=== PATIENT | female | born 1975 | race Caucasian/White ===

== ENCOUNTER 2017-08-13 15:02 | Emergency (ER) | payer SELFPAY ==
[~2017-08-13] VITALS: Ht 165.1 cm; Wt 100.0 kg
[~2017-08-13 15:02] MED LIST: CYCL-120 PO; NAPR-56 PO
[2017-08-13 15:10] VITALS: BP 141/96
[2017-08-13] MEDS ORDERED: IBUP-1986 PO (15:23)
[2017-08-13] MEDS ORDERED: METH4TAB3 PO (15:23)
== END 2017-08-13 15:48 | disposition home or self-care (01) ==
LOC: ER 15:02
DX: M72.2 Plantar fascial fibromatosis (principal); F17.200 Nicotine dependence, unspecified, uncomplicated; Z79.899 Other long term (current) drug therapy
CPT/HCPCS: 99283

== ENCOUNTER 2017-11-22 13:34 | Emergency (ER) | payer MEDICAID, OTHER ==
[~2017-11-22] VITALS: Ht 167.6 cm; Wt 97.0 kg
[~2017-11-22 13:34] MED LIST changes: +IBUP-1986 PO; +METH4TAB3 PO
[2017-11-22 13:40] VITALS: BP 132/84
[2017-11-22] MEDS ORDERED: amox tr/potassium clavulanate 875/125mg TAB PO ONE (14:00)
[2017-11-22] MEDS ORDERED: HYDR-3965 PO (14:00)
[2017-11-22] MEDS ORDERED: acetaminophen 325mg tablet PO ONE (14:00)
[2017-11-22] MEDS ORDERED: AMOX-419 PO (14:00)
== END 2017-11-22 14:06 | disposition home or self-care (01) ==
LOC: ER 13:34
DX: K08.89 Other specified disorders of teeth and supporting structures (principal); Z90.89 Acquired absence of other organs; Z79.899 Other long term (current) drug therapy
CPT/HCPCS: 99283

== ENCOUNTER 2018-04-11 19:13 | Emergency (ER) | payer MEDICAID, OTHER ==
[~2018-04-11] VITALS: Ht 167.6 cm; Wt 89.5 kg
[2018-04-11 19:25] VITALS: BP 139/87
[2018-04-11] MEDS ORDERED: IBUP-1985 PO (22:04)
[2018-04-11] MEDS ORDERED: METH-360 PO (22:04)
[2018-04-11] MEDS ORDERED: ketorolac tromethamine 15mg/ml inj. IM ONE (22:05)
[2018-04-11] MEDS ORDERED: orphenadrine citrate 60mg/2ml inj. IM ONE (22:05)
== END 2018-04-11 22:34 | disposition home or self-care (01) ==
LOC: ER 19:13
DX: S29.012A Strain of muscle and tendon of back wall of thorax, initial encounter (principal); R07.89 Other chest pain; M25.511 Pain in right shoulder; Z98.51 Tubal ligation status; Z98.890 Other specified postprocedural states; X58.XXXA Exposure to other specified factors, initial encounter; Y93.89 Activity, other specified; Y92.89 Other specified places as the place of occurrence of the external cause; Y99.9 Unspecified external cause status
CPT/HCPCS: 71045; 93005; 96372; 99283; J1885; J2360

== ENCOUNTER 2018-05-22 16:37 | Emergency (ER) | payer OTHER ==
[~2018-05-22] VITALS: Ht 167.6 cm; Wt 100.1 kg
[~2018-05-22 16:37] MED LIST changes: +IBUP-1985 PO; +METH-360 PO
[2018-05-22 18:35] VITALS: BP 133/74
[2018-05-22] MEDS ORDERED: acetaminophen w/codeine (30MG) #3 tablet PO ONE (19:20)
[2018-05-22] MEDS ORDERED: ACET-3067 PO (19:21)
== END 2018-05-22 19:32 | disposition home or self-care (01) ==
LOC: ER 16:37
DX: M79.671 Pain in right foot (principal); F17.200 Nicotine dependence, unspecified, uncomplicated; Z98.51 Tubal ligation status
CPT/HCPCS: 73630; 99283

== ENCOUNTER 2022-01-13 10:37 | Emergency (ER) | payer MEDICAID ==
[~2022-01-13] VITALS: Ht 167.6 cm; Wt 93.9 kg
[~2022-01-13 10:37] MED LIST changes: +DICL100G15 TOP; +GABA-532 PO
[2022-01-13 10:44] VITALS: BP 120/94
[2022-01-13] MEDS ORDERED: NAPR-56 PO (13:08)
[2022-01-13] MEDS ORDERED: ORPH100T2 PO (13:08)
[2022-01-13] MEDS ORDERED: ketorolac trometh inj. 60 MG/2 ML VIAL IM ONE (13:10)
[2022-01-13] MEDS ORDERED: orphenadrine citrate 60mg/2ml inj. IM ONE (13:10)
== END 2022-01-13 13:56 | disposition home or self-care (01) ==
LOC: ER 10:37
DX: S46.911A Strain of unspecified muscle, fascia and tendon at shoulder and upper arm level, right arm, initial encounter (principal); M62.838 Other muscle spasm; M25.511 Pain in right shoulder; M79.601 Pain in right arm; Z98.51 Tubal ligation status; Z72.89 Other problems related to lifestyle; Z98.890 Other specified postprocedural states; Z79.899 Other long term (current) drug therapy; X58.XXXA Exposure to other specified factors, initial encounter; Y93.89 Activity, other specified; Y92.89 Other specified places as the place of occurrence of the external cause; Y99.8 Other external cause status
CPT/HCPCS: 73030; 96372; 99284; J1885; J2360